=== PATIENT | male | born 1985 | race Caucasian/White ===

== ENCOUNTER 2016-12-17 00:22 | Emergency (ER) | payer SELFPAY ==
--- NOTE | ~2016-12-17 | CR282 ---
[facility]. [facility] A Service of [facility] RADIOLOGY TEXT RESULTS PATIENT: DAVID AYALA LOCATION: SED : 85 UNIT #: [id number] AGE: [address]: Lala Ibarra MD SEX: M ORDER DR: [id number] [address] [address] [id number] E MR#: [id number] Acc #: [id number] NAME: DAVID AYALA : 1985 SEX: M STUDY DATE/TIME: 12/17/2016 1:12 UNIT: SED ROOM: STUDY DESCRIPTION: CR Wrist Min 3 View Rt Attending Physician: Lala Ibarra M.D. Ordering Physician: Lala Ibarra M.D. MEDICAL IMAGING REPORT This report is preliminary unless electronic signature is present. EXAM Right wrist HISTORY Pain in right wrist after a fall while running 2 hours ago. FINDINGS Wrist evaluation in multiple projections shows normal mineralization of the bony structures about the wrist and satisfactory articular relationship of the radius and ulna to the proximal carpal row and of the distal carpal segments to the metacarpal bases. There is no indication of fracture or dislocation, and no soft tissue radiopaque foreign body is present. No congenital defects are apparent. IMPRESSION Normal right wrist. Dictated by... Jd Boss M.D. THIS IS AN ELECTRONICALLY VERIFIED REPORT Jd Boss M.D. at 12/17/2016 1:42 PM Kathie TD: 12/17/2016 13:25 JOB #: [id number] MEDICAL IMAGING REPORT Page 1 of 1
[2016-12-17] MEDS ORDERED: NO MEDICATIONS (00:31)
== END 2016-12-17 02:13 | disposition home or self-care (01) ==
LOC: SED 00:22
DX: S63.501A Unspecified sprain of right wrist, initial encounter (principal); W19.XXXA Unspecified fall, initial encounter; F17.210 Nicotine dependence, cigarettes, uncomplicated
CPT/HCPCS: 29125; 73110; 97602; 99283

== ENCOUNTER 2017-01-05 21:07 | Emergency (ER) | payer OTHER ==
[~2017-01-05] VITALS: Ht 182.9 cm; Wt 92.5 kg
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
[~2017-01-05 21:07] MED LIST: NO MEDICATIONS
== END 2017-01-05 23:49 | disposition home or self-care (01) ==
LOC: SED 21:07
DX: S19.9XXA Unspecified injury of neck, initial encounter (principal); S06.0X0A Concussion without loss of consciousness, initial encounter; S16.1XXA Strain of muscle, fascia and tendon at neck level, initial encounter; S60.212A Contusion of left wrist, initial encounter; S20.212A Contusion of left front wall of thorax, initial encounter; S49.91XA Unspecified injury of right shoulder and upper arm, initial encounter; F17.210 Nicotine dependence, cigarettes, uncomplicated; V49.40XA Driver injured in collision with unspecified motor vehicles in traffic accident, initial encounter
CPT/HCPCS: 70450; 71020; 72125; 73110; 99284